=== PATIENT | male | born 1990 | race Caucasian/White ===

== ENCOUNTER 2018-03-19 16:12 | Emergency (ER) | payer OTHER ==
[~2018-03-19] VITALS: Ht 190.5 cm; Wt 84.0 kg
[2018-03-19 16:59] VITALS: BP 128/69
[2018-03-19 18:58] LABS: CULTURE INDICATED? YES; MICROSCOPIC INDICATED
== END 2018-03-19 19:47 | disposition home or self-care (01) ==
LOC: ED 19:41
DX: N45.1 Epididymitis (principal); F17.200 Nicotine dependence, unspecified, uncomplicated
CPT/HCPCS: 76870; 81001; 87086; 93975; 99285

== ENCOUNTER 2018-08-11 19:58 | Emergency (ER) | payer SELFPAY ==
[~2018-08-11] VITALS: Ht 190.5 cm; Wt 86.0 kg
[2018-08-11] MEDS ORDERED: PANTOPRAZOLE 40 MG IV ONE (20:18)
[2018-08-11] MEDS ORDERED: ONDANSETRON 2MG/ML, 2ML ONE (20:18)
[2018-08-11] MEDS ORDERED: PANTOPRAZOLE 40 MG IV IVPush ONE (20:30)
[2018-08-11] MEDS ORDERED: ONDANSETRON 2MG/ML, 2ML IVPush ONE ×2 (20:30→21:30)
[2018-08-11] MEDS ORDERED: SODIUM CHLORIDE FLUSH 10ML SYR IVF ONE (20:30)
--- NOTE | 2018-08-11 20:33 | NUR ---
Plan of care discussed with patient, questions answered, call chapa within reach.
--- NOTE | 2018-08-11 20:34 | NUR ---
Patient transported for xray
[2018-08-11 20:42] LABS: BASOPHILS # (AUTO) 0.02 x10^3/uL (0-0.1); BASOPHILS % (AUTO) 0 % (0-1); EOSINOPHILS # (AUTO) 0.19 x10^3/uL (0-0.4); EOSINOPHILS % (AUTO) 3 % (1-7); LYMPHOCYTES # (AUTO) 1.74 x10^3/uL (1-3.4); LYMPHOCYTES % (AUTO) 28 % (22-44); MD NO; MEAN CORPUSCULAR HEMOGLOBIN 28.4 pg (27.5-34.5); MEAN CORPUSCULAR VOLUME 85.9 fL (81-97); MEAN PLATELET VOLUME 8.8 fL (7.4-10.4); MONOCYTES # (AUTO) 0.39 x10^3/uL (0.2-0.8); MONOCYTES % (AUTO) 6 % (2-9); NEUTROPHILS # (AUTO) 3.86 x10^3/uL (1.8-6.8); NEUTROPHILS % (AUTO) 62 % (42-75); PLATELET COUNT 267 x10^3/uL (130-400); RED BLOOD COUNT 5.94 x10^6/uL (4.38-5.82); RED CELL DISTRIBUTION WIDTH 14.4 % (9.4-14.8)
[2018-08-11 20:49] LABS: ALANINE AMINOTRANSFERASE 35 U/L (12-78); ALBUMIN 4.4 g/dL (3.4-5.0); ANION GAP 6 mmol/L (5-15); CALCIUM 8.6 mg/dL (8.5-10.1); CHLORIDE 111 mmol/L (98-107); CREATININE 0.94 mg/dL (0.7-1.3)
[2018-08-11 20:52] LABS: ALKALINE PHOSPHATASE 49 U/L (45-117); BILIRUBIN,TOTAL 0.7 mg/dL (0.2-1.0); TOTAL PROTEIN 8.1 g/dL (6.4-8.2)
--- NOTE | 2018-08-11 21:14 | NUR ---
Discharge instructions discussed with patient, verbalizes understanding. Prescriptions provided to patient with instruction for use.
[2018-08-11 21:15] VITALS: BP 111/75
[2018-08-11] MEDS ORDERED: MAALOX/HYOSCYAMINE/LIDOCAINE 45 ML BTL ONE (21:21)
[2018-08-11] MEDS ORDERED: MAALOX/HYOSCYAMINE/LIDOCAINE 45 ML BTL PO ONE (21:30)
== END 2018-08-11 21:27 | disposition home or self-care (01) ==
LOC: ED 21:05
DX: K29.00 Acute gastritis without bleeding (principal)
CPT/HCPCS: 36415; 71045; 74021; 80053; 83690; 85025; 96374; 96375; 99284; C9113; J2405